=== PATIENT | female | born 1960 | race Caucasian/White ===

== ENCOUNTER 2020-01-14 13:01 | Emergency (ER) | payer BC, SELFPAY ==
[2020-01-14 13:04] VITALS: BP 138/75; PULSE 96; RESP 20; TEMP 36.3; O2SAT 100
--- NOTE | 2020-01-14 13:15 | ED.NAVMDI ---
HPI - Nausea/Vomiting/Diarrhea General Chief complaint: Nausea/Vomiting/Diarrhea Stated complaint: vomiting/unsteady Time Seen by Provider: 01/14/20 13:25 Source: patient and RN notes reviewed Mode of arrival: ambulatory Limitations: no limitations History of Present Illness HPI Narrative: 59-year-old female presents with concern for acute nausea and vomiting. Reports today while at work she felt nauseous, went to the bathroom and had explosive vomiting . She denies fever, diarrhea, abdominal pain, coughing, shortness of breath. Reports seasonal allergy symptoms such as rhinorrhea, nasal congestion that are controlled with [id number] medicines MD elicited complaint: vomiting Related Data Home Medications Medication Instructions Recorded Confirmed [place] Immune Booster 01/14/20 garlic mg 01/14/20 multivitamin [Daily Multi-Vitamin] 1 tablet PO DAILY 01/14/20 01/14/20 Allergies Allergy/AdvReac Type Severity Reaction Status Date / Time Sulfa (Sulfonamide AdvReac Hives Verified 01/14/20 13:10 Antibiotics) Review of Systems Review of Systems: Narrative: CONSTITUTIONAL: Denies current malaise, chills, sweats, or fever. ENT: Report rhinorrhea, congestion. Denies sinus pain, otalgia or sore throat. CARDIOVASCULAR: Denies chest pain, palpitations, or edema. RESPIRATORY: Denies cough or dyspnea. GASTROINTESTINAL: Denies abdominal pain, diarrhea, bloody, or mucous stools. Reports one episode of nausea and vomiting GENITOURINARY: Denies dysuria or hematuria. MUSCULOSKELETAL: Denies myalgia. NEUROLOGIC: Denies headache. All systems reviewed & are unremarkable except as noted in HPI and below PMFSH Comments At time of signature, agree with nursing past medical, surgical, social and family history. There is no relevant family history pertinent to the presenting complaint Exam Narrative: Exam Narrative: GENERAL: Well-appearing, well-nourished, and in no acute distress. HEAD: Normocephalic EYES: PERRLA, conjunctivae clear, and EOMI. No nystagmus. ENT: Nares clear. Mucous membranes moist. TM pearly warren with sharp light reflex bilaterally; no tragal tenderness. Oropharynx without erythema or lesions. Tonsils not enlarged and without exudate. NECK: Supple. No lymphadenopathy. No jugular venous distension, thyromegaly, or carotid bruits. Carotids were easily palpable bilaterally. CHEST: No respiratory distress. Clear to auscultation. No bony deformities, no asymmetry. Speaks in full sentences. HEART: Regular rate and rhythm. No murmur heard. ABDOMEN: Soft, nontender, nondistended, normal active bowel sounds, no palpable masses. SKIN: Warm, dry, no rash. NEURO: Alert and oriented x3. PSYCH: Normal mood and affect Course Course Emergency Course: Patient is aware of diagnosis, understands and agrees to treatment plan. Anticipatory guidance given. Patient agrees to follow-up as directed and is aware of reasons to seek care at the emergency department. Portions of this record may have been created with voice recognition software Vital Signs Vital signs: Vital Signs Temperature 97.3 F L 01/14/20 13:04 Pulse Rate 96 01/14/20 13:04 Respiratory Rate 20 01/14/20 13:04 Blood Pressure 138/75 01/14/20 13:04 Pulse Oximetry 100 01/14/20 13:04 Temperature 97.3 F L 01/14/20 13:04 Pulse Rate 96 01/14/20 13:04 Respiratory Rate 20 01/14/20 13:04 Blood Pressure 138/75 01/14/20 13:04 Pulse Oximetry 100 01/14/20 13:04 Reviewed. Patient has been instructed to follow up with her primary care provider within the next week regarding her elevated blood pressure today. MDM - Nausea/Vomiting/Diarrhea MDM Narrative Medical decision making narrative: No evidence of pancreatitis, AAA, cholecystitis, choledocholithiasis, cholangitis, mesenteric ischemia, small bowel obstruction, diverticulitis, colitis, appendicitis, or pelvic etiology such as ovarian torsion, TOA. Patient has no history of peptic ulcer, H. pyl
== END 2020-01-14 13:38 | disposition home or self-care (01) ==
PROVIDERS: Emergency Provider Nurse Practitioner; PCP Family Medicine
DX: R11.2 Nausea with vomiting, unspecified (principal)
CPT/HCPCS: 99201; G0463